=== PATIENT | female | born 1990 | race African-American/Black ===

== ENCOUNTER 2019-05-07 23:36 | Emergency (ER) | payer SELFPAY ==
--- NOTE | 2019-05-08 07:50 | RAD ---
LEFT ANKLE 3 VIEWS: INDICATION: History of twisted left ankle at work. COMPARISON: None. FINDINGS: No definite acute fracture or subluxation is evident. There is soft tissue swelling of the left lowe r leg, ankle, and hindfoot. IMPRESSION: Soft tissue swelling. No acute osseous abnormality. POS: [facility]
== END 2019-05-08 01:40 | disposition home or self-care (01) ==
LOC: ERS 23:36
DX: S93.402A Sprain of unspecified ligament of left ankle, initial encounter (principal); X50.1XXA Overexertion from prolonged static or awkward postures, initial encounter